=== PATIENT | female | born 1960 | race African-American/Black ===

== ENCOUNTER 2023-10-29 15:25 | Emergency (ER) | payer OTHER ==
[2023-10-29 15:28] VITALS: PULSE 83
[2023-10-29] MEDS ORDERED: HYDR-4233 TP (15:36)
== END 2023-11-02 15:45 | disposition home or self-care (01) ==
LOC: ER 15:25
DX: L29.8 Other pruritus (principal); I10 Essential (primary) hypertension; Z98.890 Other specified postprocedural states
CPT/HCPCS: 99282

== ENCOUNTER 2024-06-12 11:28 | Emergency (ER) | payer OTHER ==
[~2024-06-12] VITALS: Ht 174 cm; Wt 81.6 kg
[~2024-06-12 11:28] MED LIST: HYDR-4233 TP
[2024-06-12 11:31] VITALS: TEMP 37.1; O2SAT 100
[2024-06-12 12:23] LABS: BASOPHILS % 0.5 % (0.0-2.0); EOSINOPHILS % 2.6 % (0.0-5.0); HEMATOCRIT. 43.2 % (36.0-48.0); HEMOGLOBIN. 14.4 g/dL (12.0-16.0); LYMPHOCYTES % 23.6 % (20.0-50.0); MEAN CORPUSCULAR HEMOGLOBIN 32.3 pg (28.0-32.0); MEAN CORPUSCULAR HGB CONC 33.4 g/dL (31.0-37.0); MEAN CORPUSCULAR VOLUME 96.9 fL (81.0-99.0); MEAN PLATELET VOLUME 10.2 fl (7.4-10.4); MONOCYTES % 8.3 % (2.0-8.0); PLATELET 175 x1000/uL (130-400); RED BLOOD CELL COUNT 4.46 mill/uL (4.2-5.4); RED CELL DISTRIBUTION WIDTH 14.1 % (11.6-14.6); WHITE BLOOD COUNT 6.3 x1000/uL (4.5-11.0)
[2024-06-12 12:24] LABS: POTASSIUM 3.5 mEq/L (3.5-5.1)
[2024-06-12 12:26] LABS: CALCIUM 9.5 mg/dL (8.7-10.4)
[2024-06-12 12:30] LABS: CREATININE 1.2 mg/dL (0.6-1.0)
[2024-06-12] MEDS ORDERED: LOSA25TA26 MT (15:43)
[2024-06-12 15:55] LABS: CLARITY URINE CLEAR (CLEAR); COLOR URINE YELLOW (YELLOW); GLUCOSE URINE NEGATIVE (NEGATIVE); KETONES URINE 1+ (NEGATIVE); PROTEIN URINE TRACE (NEGATIVE); SPECIFIC GRAVITY URINE >=1.030 (1.005-1.030)
[2024-06-12 15:56] LABS: LEUKOCYTE ESTERASE URINE TRACE (NEGATIVE); NITRITE URINE NEGATIVE (NEGATIVE); OCCULT BLOOD URINE NEGATIVE (NEGATIVE); UROBILINOGEN URINE 0.2 E.U./dL (0.2-1.0)
[2024-06-12 16:13] LABS: BACTERIA URINE 2+; CALCIUM OXALATE CRYSTALS URINE 2+ /lpf; RBC URINE 0-2 /hpf (0-2); SQUAMOUS EPITHELIAL CELL URINE 2+ /lpf (RARE/1+); YEAST URINE NONE SEEN
[2024-06-12] MEDS: LOSARTAN 25 MG TABLET PO ONE (16:21)
[2024-06-12] MEDS: ACETAMINOPHEN 500MG TABLET PO NR (16:30)
[2024-06-12 16:32] VITALS: BP 165/92; PULSE 64; RESP 18; O2SAT 100
== END 2024-06-12 16:35 | disposition home or self-care (01) ==
LOC: ER 11:28
DX: I10 Essential (primary) hypertension (principal); M79.641 Pain in right hand; M25.532 Pain in left wrist; Z79.899 Other long term (current) drug therapy; Z98.890 Other specified postprocedural states
CPT/HCPCS: 36415; 80048; 81003; 85025; 99283